=== PATIENT | male | born 1950 | race Caucasian/White ===

== ENCOUNTER 2017-11-19 13:06 | Emergency (ER) | payer BC ==
[2017-11-19 13:18] VITALS: BMI 16.3
--- NOTE | 2017-11-19 14:20 | PDOC ---
Attending Attestation - Resident Resident Name: Rip Topete - ED Attending Attestation I have performed the following: I have examined & evaluated the patient, The case was reviewed & discussed with the resident, I agree w/resident's findings & plan, Exceptions are as noted - HPI HPI: 11/19/17 14:40 The patient is a 67-year-old male, with a past medical history of metastatic lung ca (mets to brain/bone/abdomen) and hypothyroidism (on Synthroid), who presents to the ED for several days of generalized weakness. The patient was being treated aggressively with chemo/radhation at [facility]. is at bedside and reports that his last chemo treatment was on 10/14/17 and was unsuccessful. They proceeded to refer the patient to a pain management doctor who prescribed methadone and gabapentin for pain control. Since the last chemo treatment in late sep, the patient has been experiencing weakness that progressively worsened today. He also reports associated nausea and chronic L sided abdominal pain (thought to be due to mets, was worked up by his doctors) but nothing worse than his baseline. As per , the patient has not been eating or drinking much and she is concerned for dehydration. The patient denies any fevers, chills, cough, vomiting, diarrhea, or constipation. He denies any chest pain or shortness of breath. He denies any frequency, urgency, hesitancy, dysuria, or hematuria. Allergies: NKA PCP: Dr. Ornelas To enable screen reader support, press Ctrl+Alt+Z To learn about keyboard shortcuts, press Ctrl+slash - Physicial Exam PE: 11/19/17 15:44 GENERAL: The patient is awake, alert, and fully oriented, cachectic. HEAD: Normocephalic, atraumatic. EYES: extraocular movements intact, sclera anicteric, conjunctiva clear. ENT: Normal voice, dry mucous membranes. LUNGS: Breath sounds equal, clear to auscultation bilaterally. No wheezes, no rhonchi, no rales. port in L chest is c/d/i HEART: Regular rate and rhythm,allop. ABDOMEN: Soft, nontender, No guarding, no rebound. No CVA tenderness EXTREMITIES: Normal range of motion, no edema. NEUROLOGICAL: No facial assymetry, Normal speech, moving all 4 extremities spontaneously and symmetrically PSYCH: Normal mood, normal affect. SKIN: Warm, Dry, normal turgor, - Medical Decision Making 11/19/17 15:40 67y M hx of mestatatisc lung ca presents with general waekness, lightehadedness without any focal fever/chills, new abd pain, cp, sob, cough, dysuria, diarrhea. will ck basic labs to r/o metabolic derangement, ua to r/o uti iwill give fluids for hydration will reassess Heart Score/ECG Review - ECG Intrepretation Rhythm: Regular Rhythm - [place] Fairfield: Right [place] Deviation - ECG Impressions Non-specific ST Elevation: No Ischemic Changes: No
[2017-11-19] MEDS ORDERED: SODIUM CHLORIDE 0.9% 500 ML INFUS.BAG IV ONE ×2 (14:45→17:39)
--- NOTE | 2017-11-19 16:00 | PDOC ---
History of Present Illness - General Chief Complaint: Lightheaded Stated Complaint: DIZZINESS,WEAKNESS Time Seen by Provider: 11/19/17 13:50 History Source: Patient, Spouse ( present for interview.) Exam Limitations: No Limitations - History of Present Illness Initial Comments: 67 y/o male presenting to [facility] ER via private auto complaining of generalized weakness for the past several days in setting of Stage 4 non-small cell lung cancer with mets including brain, spine, and abdomen. Pt endorses decreased PO intake and chronic pain in lower left flank. He was started on gabapentin and methadone two weeks ago by new pain management physician. Oncology care is within [facility]. Last chemotherapy was at the end of September 2017. No recent radiation treatment. Denies tachycardia, palpitations, flushing, or syncope. PCP: Rip Ornelas Oncologist: Sierra (Tele: [phone]) Pain Management: Edmundo (Tele: [phone]) Past History - Past Medical History Allergies/Adverse Reactions: Allergies Allergy/AdvReac Type Severity Reaction Status Date / Time No Known Allergies Allergy Verified 11/19/17 13:19 Home Medications: Ambulatory Orders Dexamethasone 2 mg PO DAILY 11/19/17 Folic Acid 1 mg PO DAILY 11/19/17 Gabapentin 300 mg PO BID 11/19/17 Levothyroxine [Synthroid -] 75 mcg PO DAILY 11/19/17 Methadone HCl 5 mg PO DAILY 11/19/17 Cancer: Yes (LUNG) COPD: No Thyroid Disease: Yes - Suicide/Smoking/Psychosocial Hx Smoking History: Never smoked Review of Systems - Review of Systems Able to Perform ROS?: Yes Comments:: In addition to that documented in the HPI above, the additional ROS was obtained : Constitutional: Denies fevers or chills Eyes: Denies vision changes ENMT: Denies sore throat CV: Denies chest pain Resp: Denies SOB GI: Denies vomiting or diarrhea *Physical Exam - Vital Signs Last Vital Signs Temp Pulse Resp BP Pulse Ox 99.3 F 95 H 18 100/67 97 11/19/17 13:12 11/19/17 13:12 11/19/17 13:12 11/19/17 13:12 11/19/17 13:12 - Physical Exam Comments: Constitutional: Well-developed, non-toxic, thin male in no acute distress. Found semi-fowlers in hospital bed. Alert and oriented x4. Answered all questions appropriately and completely. Speech was non-labored, non-pressured. HEENT: Normocephalic. No obvious external signs of trauma. Hearing grossly normal. No nasal discharge. Oral mucosal membrane dry, not injected. Neck is supple, trachea is midline. Cardiovascular: Regular rate and regular rhythm. No murmur, rubs, clicks, or gallops. Peripheral pulses: Radial pulses full. Respiratory: Breathing unlabored. Equal chest rise and fall. Clear to auscultation bilaterally. No stridor, no wheezing, no rhonchi. Gastrointestinal: abdomen is tender in left flank but otherwise soft and nondistended. No overlying skin lesions or obvious signs of trauma. Neuro: Alert and oriented. Moving all four extremities spontaneously. Skin: Pale, warm, dry, and intact. No bruising, rashes, or other lesions. No palpable nodules. Poor skin turgor. Psych: Affect: appropriate. Mood: normal. ED Treatment Course - LABORATORY CBC & Chemistry Diagram: 11/19/17 16:34 11/19/17 16:23 - Medications Given in the ED: ED Medications Discontinued Medications Generic Name Dose Route Start Last Admin Trade Name Freq PRN Reason Stop Dose Admin Sodium Chloride 2,000 ml 11/19/17 14:45 11/19/17 14:56 Normal Saline - IV 11/19/17 14:46 2,000 ml ONCE ONE Administration Medical Decision Making - Medical Decision Making *Reviewed vital signs, nursing notes, and prior visit documentation (if available). 67 y/o male complaining of generalized weakness and decreased PO. Denies symptoms of tumor lysis syndrome. Afebrile. Vitals unremarkable. Appears dehydrated on physical exam. Spent greater than 20 min in discussion with pt and regarding their frustrations with current aggressive management by oncologic team. Both expressed desire to explore palliative care options. Pt stated he only wanted basic labs drawn and NS IVFB. Declined acute pain management. CBC unremarkable for anemia or leukocytosis. BMP unremarkable for electrolyte derangement UA unremarkable for pyuria, leukocyte esterase, or nitrites. Low suspicion for UTI. 18:32 Pt assessed after receiving 3L NS: skin color has improved, mucosal membranes appear more moist. Pt states he feels somewhat better. Discussed laboratory results. He requests to be sent home, declined discussion about admission. Provided return precautions. *DC/Admit/Observation/Transfer Diagnosis at time of Disposition: Dehydration - Discharge Dispostion Disposition: HOME Condition at time of disposition: Stable Decision to Admit order: No - Referrals Referrals: Rip Ornelas MD [Primary Care Provider] - - Patient Instructions Printed Discharge Instructions: DI for Dehydration -- Adult Additional Instructions: Your symptoms today were likely a combination of your medications and dehydration from lack of eating and drinking. I recommend you share some of the thoughts and concerns brought up in our conversation with your physicians at [facility]. You need to eat and drink more, even if you don't feel like it. Go to the nearest emergency department if you symptoms worsen or you feel like you need additional emergency care. Print Language: ALBANIAN - Post Discharge Activity
[2017-11-19 16:35] LABS: URINE APPEARANCE SLCLOUDY; URINE BILIRUBIN NEGATIVE (<2.0 mg/dL); URINE COLOR YELLOW; URINE GLUCOSE (UA) NEGATIVE (NEGATIVE); URINE KETONE 1+ (NEGATIVE); URINE LEUK ESTERASE NEGATIVE (NEGATIVE); URINE NITRITE NEGATIVE (NEGATIVE); URINE PROTEIN NEGATIVE (NEGATIVE)
[2017-11-19 17:09] LABS: ANION GAP 8 MMOL/L (8-16); BLOOD UREA NITROGEN 11 mg/dL (7-18); CALCIUM 8.4 mg/dL (8.5-10.1); CHLORIDE 98 mmol/L (98-107); CO2 27 mmol/L (21-32); CREATININE 0.6 mg/dL (0.55-1.3); GLUCOSE,RANDOM 80 mg/dL (74-106); POTASSIUM 4.3 mmol/L (3.5-5.1); SODIUM 133 mmol/L (136-145)
[2017-11-19 17:13] LABS: URINE MUCUS RARE
[2017-11-19 17:24] LABS: BASO % 0.5 % (0-2.0); HEMATOCRIT 35.9 % (35.4-49); LYMPH % 6.6 % (8-40); MCH 30.7 pg (25.7-33.7); MCHC 33.4 g/dl (32.0-35.9); MEAN PLT VOLUME 7.5 fl (7.5-11.1); MONO % 7.5 % (3.8-10.2); NEUT % 85.4 % (42.8-82.8); PLATELET COUNT 356 K/MM3 (134-434); WHITE BLOOD COUNT 7.9 K/mm3 (4.0-10.0)
[2017-11-19 18:42] VITALS: BP 142/77; PULSE 78; TEMP 98
--- NOTE | 2017-11-21 09:38 | EKG ---
Test Reason : Blood Pressure : / mmHG Vent. Rate : 085 BPM Atrial Rate : 085 BPM P-R Int : 142 ms QRS Dur : 098 ms QT Int : 390 ms P-R-T Axes : 075 092 081 degrees QTc Int : 464 ms NORMAL SINUS RHYTHM RIGHTWARD AXIS BORDERLINE ECG WHEN COMPARED WITH ECG OF 30-AUG-2005 11:47, NO SIGNIFICANT CHANGE WAS FOUND Confirmed by CASA MINER MD ([id number]) on 11/21/2017 9:37:42 AM Referred By: Confirmed By:CASA MINER MD
== END 2017-11-19 18:42 | disposition home or self-care (01) ==
LOC: JER 13:06
DX: E86.0 Dehydration (principal); C34.90 Malignant neoplasm of unspecified part of unspecified bronchus or lung; C79.51 Secondary malignant neoplasm of bone; C79.31 Secondary malignant neoplasm of brain; C79.89 Secondary malignant neoplasm of other specified sites; E03.9 Hypothyroidism, unspecified
CPT/HCPCS: 36415; 80048; 81003; 81015; 85025; 87086; 93005; 93010; 99284-25